=== PATIENT | female | born 1960 | race Caucasian/White ===

== ENCOUNTER 2017-02-16 19:13 | Emergency (ER) | payer BC ==
[2017-02-16] MEDS ORDERED: KETOROLAC 30 MG/ML 1 ML VIAL IVP STA (19:52)
[2017-02-16] MEDS ORDERED: ORPHENADRINE 30 MG/ML 2 ML VIAL IVP STA (19:52)
--- NOTE | 2017-02-16 19:54 | ED ---
Chest Pain HPI - General Chief Complaint: Chest Pain Stated Complaint: Chest Pain Time Seen by Provider: 02/16/17 19:21 Source: patient, family, RN notes reviewed Mode of arrival: wheelchair Limitations: no limitations - History of Present Illness Initial Comments: This is a 56-year-old female with a benign past Physician developed severe sharp left-sided chest pain that radiated to her back about 2 hours ago. She states she had been scraping her basement floor prior to this happening. She states it increases with movements and deep breathing she denies any fevers chills nausea vomiting sweats. She has no prior history of heart or lung disease. No other complaints at this time. MD Complaint: chest pain - Related Data Previous Rx's Medication Instructions Recorded Cyclobenzaprine [Flexeril] 10 mg PO TID #14 tab 02/16/17 Ibuprofen 800 mg PO Q6HR PRN #20 tablet 02/16/17 Allergies Allergy/AdvReac Type Severity Reaction Status Date / Time No Known Allergies Allergy Verified 02/16/17 20:00 Review of Systems ROS Statement: Those systems with pertinent positive or pertinent negative responses have been documented in the HPI. ROS Other: All systems not noted in ROS Statement are negative. EKG Findings - EKG Results: EKG: interpreted by FREDY COREY, sinus rhythm, normal axis, normal QRS, normal ST/ T, no acute changes (Normal sinus rhythm a rate of 85 AL interval 162 QRS 80 QT since QTC of 374/445 this is a normal-appearing) Past Medical History Past Medical History: No Reported History History of Any Multi-Drug Resistant Organisms: None Reported Past Surgical History: No Surgical Hx Reported Past Psychological History: No Psychological Hx Reported Smoking Status: Never smoker Past Alcohol Use History: Occasional Past Drug Use History: Marijuana General Exam - General Exam Comments Initial Comments: This is a well-developed well-nourished awake alert oriented 3 female Limitations: no limitations General appearance: alert, anxious Head exam: Present: atraumatic, normocephalic, normal inspection Eye exam: Present: normal appearance, PERRL, EOMI. Absent: scleral icterus, conjunctival injection, periorbital swelling ENT exam: Present: normal exam, mucous membranes moist Neck exam: Present: normal inspection. Absent: tenderness, meningismus, lymphadenopathy Respiratory exam: Present: normal lung sounds bilaterally, chest wall tenderness (Reproducible tenderness palpation along the left costochondral margin and the left paraspinous musculature at the level of the mid thoracic spine no spinous process tenderness.). Absent: respiratory distress, wheezes, rales, rhonchi, stridor Cardiovascular Exam: Present: regular rate, normal rhythm, normal heart sounds. Absent: systolic murmur, diastolic murmur, rubs, gallop, clicks GI/Abdominal exam: Present: soft, normal bowel sounds. Absent: distended, tenderness, guarding, rebound, rigid Extremities exam: Present: normal inspection, full ROM, normal capillary refill. Absent: tenderness, pedal edema, joint swelling, calf tenderness Back exam: Present: normal inspection Neurological exam: Present: alert, oriented X3, CN II-XII intact Psychiatric exam: Present: normal affect, normal mood Skin exam: Present: warm, dry, intact, normal color. Absent: rash Course Vital Signs 02/16/17 02/16/17 02/16/17 19:15 19:48 20:40 Temperature 98.0 F Pulse Rate 92 90 79 Respiratory 18 18 16 Rate Blood Pressure 175/79 132/75 149/77 O2 Sat by Pulse 98 100 100 Oximetry Chest Pain MDM - MDM Reevaluation patient reveals that she feels much improved. I did discuss the findings with her the workup thus far is negative for acute findings the presentation is consistent with costochondritis. Visual be discharged and placed on anti-inflammatories almost relaxants. She is a follow-up with her doctor return when necessary Disposition Clinical Impression: Costalchondritis, Chest wall syndrome Disposition: HOME SELF-CARE Condition: Good Instructions: Costochondritis (ED) Prescriptions: Cyclobenzaprine [Flexeril] 10 mg PO TID #14 tab Ibuprofen 800 mg PO Q6HR PRN #20 tablet PRN Reason: Pain Referrals: Leon Parker DO [Primary Care Provider] - 1-2 days
[2017-02-16 20:08] LABS: Basophils # (A) 0.2 k/uL (0-0.2); Basophils % (A) 2 %; CH 29.5; Eosinophils # (A) 0.1 k/uL (0-0.7); Eosinophils % (A) 1 %; HCT 38.5 % (34.0-46.0); HDW 2.47; HGB 13.3 gm/dL (11.4-16.0); Immature Gran Flag Marked; Luc # (Auto) 0.22; Luc % (Auto) 2; Lymphocytes % (A) 34 %; MCHC 34.5 g/dL (31.0-37.0); Mean Platelet Volume 7.8; Monocytes # (A) 0.5 k/uL (0-1.0); Monocytes % (A) 5 %; Neutrophils % (A) 59 %; RBC 4.43 m/uL (3.80-5.40); RDW 13.6 % (11.5-15.5); WBC 11.9 k/uL (3.8-10.6); WBC (Perox) 11.93
[2017-02-16 20:20] LABS: ALT 43 U/L (9-52); AST 30 U/L (14-36); Alkaline Phosphatase 104 U/L (38-126); Anion Gap 12 mmol/L; Blood Urea Nitrogen 18 mg/dL (7-17); Calcium 9.6 mg/dL (8.4-10.2); Carbon Dioxide 23 mmol/L (22-30); Chloride 104 mmol/L (98-107); Glucose 91 mg/dL (74-99); Magnesium 1.9 mg/dL (1.6-2.3); Non-African American GFR(MDRD) >60 (>60 ml/min/1.73 sqM); Potassium 4.4 mmol/L (3.5-5.1); Sodium 139 mmol/L (137-145); Total Bilirubin 0.7 mg/dL (0.2-1.3); Total Protein 7.6 g/dL (6.3-8.2)
[2017-02-16 20:24] LABS: Partial Thromboplastin Time 23.4 sec (22.0-30.0); Prothrombin Time 9.8 sec (9.0-12.0)
[2017-02-16 20:31] LABS: Creatine Kinase 99 U/L (30-135)
[2017-02-16 20:40] VITALS: RESP 16
[2017-02-16 20:43] LABS: Creatine Kinase MB 1.2 ng/mL (0.0-2.4); Troponin I <0.012 ng/mL (0.000-0.034)
[2017-02-16 21:30] VITALS: BP 145/70; PULSE 82; TEMP 97.4
--- NOTE | 2017-02-16 21:39 | XR ---
EXAMINATION TYPE: XR chest 2V DATE OF EXAM: 02/16/2017 COMPARISON: None HISTORY: 56-year-old female with chest pain TECHNIQUE: PA and lateral views FINDINGS: Heart is normal size. Aorta and pulmonary vasculature within normal limits. Mild diffuse interstitial prominence has a chronic appearance. There is some patchy peripheral left midlung opacity. No pleura l effusion. Degenerative changes at both shoulders. IMPRESSION: Patchy peripheral left midlung opacity. A focal infiltrate is suggested. Follow-up after any potentia l treatment to ensure clearance. If the finding persists, CT would be indicated.
== END 2017-02-16 21:30 | disposition home or self-care (01) ==
LOC: EC 19:13
DX: M94.0 Chondrocostal junction syndrome [Tietze] (principal); R07.1 Chest pain on breathing
CPT/HCPCS: 99285; 96374; 96375; 36415; 93005; 85379; 80053; 82550; 82553; 83735; 84484; 85025; 85610; 85730; 71020; J2360; J1885